=== PATIENT | male | born 1995 | race African-American/Black ===

== ENCOUNTER 2016-07-17 18:33 | Emergency (ER) | payer OTHER ==
[~2016-07-17] VITALS: Ht 152.4 cm; Wt 44.9 kg
[~2016-07-17 18:33] MED LIST: ALBUTEROL0.083 % IN; BACLOFEN20 MG PEG; BROMFED DM PO; BUDESUS8 INH; CLARITIN10 MG OR; CLARITIN10 MG PO; LEVAQUIN500 MG PO; LEVETIRACET100 MG/ML PEG; MEDROL DOSEPAK4 MG PO; METOCLOPRAM5 MG/5 ML OR; MOME50SP; NYST100016 TOP; PEPCID40 MG PEG; POLY GLYCOL3350 M1 PO; POLY GLYCOL3350 M1 XX; PROM25TA52 PO; SILV1CRE EX; TOBRAMYCIN0.3 % OP; [UNRECOGNIZED DRUG - OTHER] PO
[2016-07-17 18:55] VITALS: BP 105/62
[2016-07-17 19:42] LABS: PLATELET COUNT 217 K/uL (142-355)
[2016-07-17 19:49] LABS: POTASSIUM 3.3 mmol/L (3.6-5.2); SODIUM 134 mmol/L (136-145)
[2016-07-17 21:46] VITALS: TEMP 101
== END 2016-07-17 21:46 | disposition home or self-care (01) ==
LOC: ED 18:33
PROVIDERS: Emergency Medicine
DX: J02.0 Streptococcal pharyngitis (principal); R50.9 Fever, unspecified
CPT/HCPCS: 36415; 80053; 81000; 85027; 87040; 87804; 87880; 99283

== ENCOUNTER 2018-03-27 12:51 | Outpatient (CLI) | payer OTHER | END 2018-03-27 19:18 | disposition home or self-care (01) | LOC: LAB 12:51 | DX: R19.7 Diarrhea, unspecified (principal) | CPT/HCPCS: 82272; 83630; 87015; 87045; 87324; 87328; 87329; 87449; 87507; 87899 ==

== ENCOUNTER 2018-05-06 12:47 | Outpatient (CLI) | payer OTHER | END 2018-05-06 19:07 | disposition home or self-care (01) | LOC: LAB 12:47 | DX: L89.142 Pressure ulcer of left lower back, stage 2 (principal) | CPT/HCPCS: 87070; 87077; 87186; 87205 ==

== ENCOUNTER 2018-06-23 14:34 | Outpatient (CLI) | payer OTHER ==
[2018-06-23 15:11] LABS: POTASSIUM 4.3 mmol/L (3.6-5.2)
== END 2018-06-23 19:22 | disposition home or self-care (01) ==
LOC: LABW 14:34
PROVIDERS: Pediatrics Pediatric Pulmonology
DX: J98.4 Other disorders of lung (principal)
CPT/HCPCS: 36415; 36600; 80048; 82805

== ENCOUNTER 2019-02-25 10:30 | Outpatient (CLI) | payer OTHER | END 2019-02-25 19:46 | disposition home or self-care (01) | LOC: LAB 10:30 → RAD 10:30 | DX: J40 Bronchitis, not specified as acute or chronic (principal); G93.1 Anoxic brain damage, not elsewhere classified | CPT/HCPCS: 87070; 87077; 87186; 87205 ==

== ENCOUNTER 2019-06-24 13:40 | Outpatient (CLI) | payer OTHER ==
[2019-06-24 14:18] LABS: POTASSIUM 4.3 mmol/L (3.6-5.2)
== END 2019-06-24 19:49 | disposition home or self-care (01) ==
LOC: RAD 13:40
PROVIDERS: Pediatrics Pediatric Pulmonology
DX: J98.4 Other disorders of lung (principal); R06.89 Other abnormalities of breathing
CPT/HCPCS: 36600; 80048; 82805

== ENCOUNTER 2019-08-04 10:26 | Outpatient (CLI) | payer OTHER ==
[2019-08-04 11:10] LABS: PLATELET COUNT 233 K/uL (142-355)
== END 2019-08-04 19:29 | disposition home or self-care (01) ==
LOC: LABW 10:26
PROVIDERS: Internal Medicine
DX: J98.4 Other disorders of lung (principal)
CPT/HCPCS: 36415; 80053; 85027; 87040

== ENCOUNTER 2020-01-18 01:34 | Inpatient (IN) | payer OTHER ==
[~2020-01-18] VITALS: Ht 121.9 cm; Wt 40.9 kg
[2020-01-18] VITALS (17 sets, daily range): BP systolic 106–121; BP diastolic 60–79; TEMP 99–103.1; Ht 121.9 cm; Wt 40.9 kg
[~2020-01-18 01:34] MED LIST changes: +LEVE5MLUD PO; -LEVETIRACET100 MG/ML PEG
[2020-01-18 02:51] LABS: PLATELET COUNT 114 K/uL (142-355)
[2020-01-18 02:58] LABS: POTASSIUM 3.8 mmol/L (3.6-5.2)
[2020-01-18] MEDS ORDERED: CETI10TA PO (17:11)
[2020-01-19] VITALS (18 sets, daily range): BP systolic 105–150; BP diastolic 57–82; TEMP 97.6–98.6
[2020-01-19 05:45] LABS: PLATELET COUNT 88 K/uL (142-355)
[2020-01-20] VITALS (17 sets, daily range): BP systolic 114–142; BP diastolic 57–81; TEMP 97.7–98.5
[2020-01-20 06:30] LABS: POTASSIUM 3.5 mmol/L (3.6-5.2)
[2020-01-20 16:32] LABS: PLATELET COUNT 106 K/uL (142-355)
[2020-01-21] VITALS: BP 132/75; BP 155/67; TEMP 98.8; TEMP 98.9
[2020-01-21 04:00] VITALS: BP 116/64; TEMP 98.6
[2020-01-21 05:46] LABS: POTASSIUM 3.1 mmol/L (3.6-5.2)
[2020-01-21 08:00] VITALS: BP 120/73; TEMP 97.8
[2020-01-21 11:52] VITALS: BP 134/75; TEMP 99.2
[2020-01-21 16:00] VITALS: BP 129/68; TEMP 98.7
[2020-01-21 16:20] LABS: PLATELET COUNT 134 K/uL (142-355)
[2020-01-21 20:00] VITALS: BP 122/65; TEMP 98.3
[2020-01-22] VITALS (7 sets, daily range): BP systolic 95–129; BP diastolic 52–84; TEMP 98.4–98.9
[2020-01-22 05:35] LABS: POTASSIUM 5.8 mmol/L (3.6-5.2)
[2020-01-22 16:59] LABS: PLATELET COUNT 149 K/uL (142-355)
[2020-01-23 04:00] VITALS: BP 129/78; TEMP 98.6
[2020-01-23 05:42] LABS: PLATELET COUNT 145 K/uL (142-355)
[2020-01-23 05:52] LABS: POTASSIUM 3.2 mmol/L (3.6-5.2)
[2020-01-23 08:00] VITALS: BP 128/70; TEMP 98.7
[2020-01-23 12:00] VITALS: BP 128/79; TEMP 99.4
[2020-01-23 16:00] VITALS: BP 126/70; TEMP 99.2
[2020-01-23 20:00] VITALS: BP 128/78; TEMP 99.8
[2020-01-24 00:02] VITALS: BP 113/65; TEMP 99.1
[2020-01-24 04:00] VITALS: BP 113/66; TEMP 99.1
[2020-01-24 06:07] LABS: PLATELET COUNT 238 K/uL (142-355)
[2020-01-24 06:27] LABS: POTASSIUM 3.6 mmol/L (3.6-5.2)
[2020-01-24 08:00] VITALS: BP 102/67; TEMP 99.7
[2020-01-24 12:00] VITALS: BP 87/52; TEMP 98
[2020-01-24 16:00] VITALS: BP 98/70; TEMP 100.2
[2020-01-24 20:00] VITALS: BP 92/48; TEMP 99.6
[2020-01-25 00:15] VITALS: BP 104/57; TEMP 98.7
[2020-01-25 04:00] VITALS: BP 101/54; TEMP 98.6
[2020-01-25 05:57] LABS: POTASSIUM 3.8 mmol/L (3.6-5.2)
[2020-01-25 08:00] VITALS: BP 123/74; TEMP 96.8
[2020-01-25 12:00] VITALS: BP 111/67; TEMP 98.5
[2020-01-25 13:16] LABS: PLATELET COUNT 241 K/uL (142-355)
[2020-01-25] MEDS ORDERED: MIRALAX3350 N1 PEG (14:53)
[2020-01-25 16:00] VITALS: BP 116/72; TEMP 98.3
[2020-01-25 20:00] VITALS: BP 113/67; TEMP 99.5
[2020-01-26 00:20] VITALS: BP 93/56; TEMP 99.5
[2020-01-26 04:00] VITALS: BP 103/60; TEMP 99.3
[2020-01-26 08:00] VITALS: BP 106/53; TEMP 98
[2020-01-26] MEDS ORDERED: LEVAQUIN250 MG PO (11:02)
[2020-01-26 12:00] VITALS: BP 106/77; TEMP 98.5
== END 2020-01-26 15:40 | disposition home or self-care (01) | DRG 177 ==
LOC: ED 01:34 → MED/SURG 03:45 → ICU 06:00 → PCU 01-19 19:30 → MED/SURG 01-20 20:52
PROVIDERS: Hospitalist; ADMIT Internal Medicine Endocrinology, Diabetes & Metabolism
DX: J15.1 Pneumonia due to Pseudomonas (principal); A41.89 Other specified sepsis; J96.01 Acute respiratory failure with hypoxia; G40.802 Other epilepsy, not intractable, without status epilepticus; E87.1 Hypo-osmolality and hyponatremia; J90 Pleural effusion, not elsewhere classified; J98.11 Atelectasis; J15.6 Pneumonia due to other Gram-negative bacteria; M41.80 Other forms of scoliosis, site unspecified; R00.0 Tachycardia, unspecified; I95.89 Other hypotension; G80.8 Other cerebral palsy; K21.9 Gastro-esophageal reflux disease without esophagitis; F78 Other intellectual disabilities; G71.09 Other specified muscular dystrophies; D69.6 Thrombocytopenia, unspecified; E87.6 Hypokalemia; Z93.0 Tracheostomy status
CPT/HCPCS: 36415; 36591; 36600; 80048; 80053; 80202; 81000; 82550; 82805; 83605; 83735; 83880; 84484; 85027; 87040; 87070; 87077; 87186; 87205; 87502; 87635; 87651; 90658; 93005; 94640; 94664; 94760; 96360; 96365; 96366; 99284; C1726; J0132; J1100; J1450; J1650; J1940; J1956; J2060; J2185; J3370; J3490; U0003

== ENCOUNTER 2020-03-15 10:05 | Emergency (ER) | payer OTHER ==
[~2020-03-15] VITALS: Ht 121.9 cm; Wt 40.8 kg
[~2020-03-15 10:05] MED LIST changes: +CETI10TA PO; +LEVAQUIN250 MG PO; +MIRALAX3350 N1 PEG
[2020-03-15 11:09] LABS: PLATELET COUNT 310 K/uL (142-355)
[2020-03-15 11:27] LABS: PARTIAL THROMBOPLASTIN TIME 28.2 SECONDS (24.5-33.6)
[2020-03-15 20:30] VITALS: BP 126/82; TEMP 99.9
== END 2020-03-15 20:30 | disposition short-term general hospital (02) ==
LOC: ED 10:05
PROVIDERS: Hospitalist
DX: K56.699 Other intestinal obstruction unspecified as to partial versus complete obstruction (principal)
CPT/HCPCS: 36591; 80053; 80320; 81000; 82150; 83690; 85027; 85610; 85730; 87040; 96361; 96365; 96366; 96367; 96375; 99284; J1956; J2405; J3490

== ENCOUNTER 2021-04-24 14:53 | Outpatient (CLI) | payer OTHER ==
[2021-04-24 15:08] LABS: PLATELET COUNT 283 K/uL (142-355)
== END 2021-04-24 19:09 | disposition home or self-care (01) ==
LOC: LABW 14:53
PROVIDERS: ATTEND Internal Medicine
DX: J96.12 Chronic respiratory failure with hypercapnia (principal); G40.319 Generalized idiopathic epilepsy and epileptic syndromes, intractable, without status epilepticus
CPT/HCPCS: 36415; 80053; 82542; 85027

== ENCOUNTER 2021-06-05 13:23 | Outpatient (CLI) | payer OTHER | END 2021-06-05 19:03 | disposition home or self-care (01) | LOC: RAD 13:23 | PROVIDERS: ATTEND Internal Medicine | DX: J96.12 Chronic respiratory failure with hypercapnia (principal) ==

== ENCOUNTER 2022-10-30 10:31 | Outpatient (CLI) | payer OTHER ==
[2022-10-30 10:52] LABS: PLATELET COUNT 154 K/uL (142-355)
[2022-10-30 11:14] LABS: POTASSIUM 3.9 mmol/L (3.6-5.2)
== END 2022-10-30 18:53 | disposition home or self-care (01) ==
LOC: LABW 10:31
PROVIDERS: ATTEND Internal Medicine
DX: G80.0 Spastic quadriplegic cerebral palsy (principal); D64.89 Other specified anemias; J96.12 Chronic respiratory failure with hypercapnia
CPT/HCPCS: 36415; 80053; 83735; 84439; 84443; 85027

== ENCOUNTER 2023-02-21 07:48 | Outpatient (CLI) | payer OTHER | END 2023-02-21 19:42 | disposition home or self-care (01) | LOC: RAD 07:48 | PROVIDERS: ATTEND Internal Medicine | DX: Z45.2 Encounter for adjustment and management of vascular access device (principal) | CPT/HCPCS: 36598 ==